=== PATIENT | male | born 1965 | race Caucasian/White ===

== ENCOUNTER 2021-01-25 10:15 | Emergency (ER) | payer BC ==
[2021-01-25] MEDS ORDERED: Take Home: Ketorolac 10 MG Tab, 4 Tab Pack PO ONE (10:28)
--- NOTE | 2021-01-25 10:31 | EDM.PDOC ---
ED HPI GENERAL MEDICAL PROBLEM - General Chief Complaint: General Stated Complaint: Knee Injury Time Seen by Provider: 01/25/21 10:25 Source of Information: Reports: Patient History Limitations: Reports: No Limitations - History of Present Illness INITIAL COMMENTS - FREE TEXT/NARRATIVE: Carter is a 55 year old male who presents to ER with complaints of left knee pain. Was stepping down out of his tree stand and felt a pop in his posterior left knee. Did not fall. Does not recall twisting it. Has had posterior knee pain since it occurred. Did have trouble sleeping last night due to discomfort. Has been icing it frequently since it occurred. Has pain "deep in the back" and pain with weight bearing. No buckling, does not give out on him. Has not noted any obvious swelling. Onset: Gradual Duration: Hour(s):, Constant Location: Reports: Lower Extremity, Left Quality: Reports: Ache Severity: Moderate Improves with: Reports: Rest Worsens with: Reports: Movement Associated Symptoms: Reports: No Other Symptoms Left Knee Pain Score (Numeric/FACES): 6 - Related Data Allergies Allergy/AdvReac Type Severity Reaction Status Date / Time doxycycline Allergy Hives Verified 01/25/21 10:22 Home Meds: Home Meds Ketorolac [Toradol] 10 mg PO Q6H PRN #16 tab 01/25/21 [Rx] Losartan/Hydrochlorothiazide [Losartan-HCTZ 100-25 MG] 1 each PO DAILY 01/25/21 [History] Metoprolol Succinate [Toprol XL 100mg] 100 mg PO DAILY 01/25/21 [History] Simvastatin [Zocor] 20 mg PO BEDTIME 01/25/21 [History] Temazepam [Restoril] 15 mg PO BEDTIME PRN 01/25/21 [History] Venlafaxine HCl [Venlafaxine ER] 75 mg PO DAILY 01/25/21 [History] busPIRone [Buspar] 15 mg PO DAILY 01/25/21 [History] metFORMIN [Glucophage XR] 500 mg PO BIDMEALS 01/25/21 [History] Past Medical History Cardiovascular History: Reports: High Cholesterol, Hypertension Psychiatric History: Reports: Anxiety, Depression Endocrine/Metabolic History: Reports: Diabetes, Type II Social & Family History - Tobacco Use Tobacco Use Status *Q: Never Tobacco User ED ROS GENERAL - Review of Systems Review Of Systems: Comprehensive ROS is negative, except as noted in HPI. ED EXAM, GENERAL - Physical Exam Exam: See Below Exam Limited By: No Limitations General Appearance: Alert, WD/WN, No Apparent Distress Extremities: Normal Inspection, Normal Range of Motion, Other (Pain noted with palpation to posterior knee, more laterally. No obvious swelling. No varus or valgus laxity. Good range of motion). No: Joint Swelling Neurological: Alert, Oriented Skin Exam: Warm, Dry Course - Orders/Labs/Meds Orders: Active Orders 24 hr Category Date Time Status Knee 3V Lt [CR] Stat Exams 01/25/21 10:11 Ordered Meds: Medications Discontinued Medications Generic Name Dose Route Start Last Admin Trade Name Freq PRN Reason Stop Dose Admin Ketorolac Tromethamine 1 packet 01/25/21 10:28 Take Home: Ketorolac 10 Mg Tab, 4 Tab Pack PO 01/25/21 10:29 ONETIME ONE - Re-Assessments/Exams Free Text/Narrative Re-Assessment/Exam: 01/25/21 10:39 Xrays are negative. Instructions discussed with patient. Departure - Departure Time of Disposition: 10:39 Disposition: Home, Self-Care 01 Clinical Impression: Sprain of left knee - Discharge Information *PRESCRIPTION DRUG MONITORING PROGRAM REVIEWED*: No *COPY OF PRESCRIPTION DRUG MONITORING REPORT IN PATIENT [place]: No Prescriptions: Ketorolac [Toradol] 10 mg PO Q6H PRN #16 tab PRN Reason: Pain Instructions: Knee Sprain, Adult, [id number] Forms: ED Department Discharge Additional Instructions: 1. Rest 2. Elevate knee today 3. Ice frequently today, may alternate with heat tomorrow 4. Toradol 10 mg every 6 hours for pain and swelling 5. Follow up in 5-7 days if pain persists, may need MRI of knee 6. Consider seeing physical therapy for treatment 7. Call with any questions or concerns - My Orders Last 24 Hours: My Active Orders 01/25/21 10:11 Knee 3V Lt [CR] Stat - Assessment/Plan Last 24 Hours: My Active Orders 01/25/21 10:11 Knee 3V Lt [CR] Stat
== END 2021-01-25 10:50 | disposition home or self-care (01) ==
LOC: CC.ED 10:15
DX: S83.92XA Sprain of unspecified site of left knee, initial encounter (principal); E78.00 Pure hypercholesterolemia, unspecified; I10 Essential (primary) hypertension; E11.9 Type 2 diabetes mellitus without complications; Z88.1 Allergy status to other antibiotic agents; Z79.84 Long term (current) use of oral hypoglycemic drugs; Z79.899 Other long term (current) drug therapy; X58.XXXA Exposure to other specified factors, initial encounter
CPT/HCPCS: 73562-LT; 99283-25; A9270-GY

== ENCOUNTER 2022-01-03 18:19 | Emergency (ER) | payer BC ==
[2022-01-03 18:45] VITALS: BP 116/66; PULSE 133
[2022-01-03] MEDS: Lidocaine 1% 5 ML VIAL INJECT ONE (19:08)
[2022-01-03] MEDS: cefTRIAXone 1 GM Vial IM ONE (19:08)
== END 2022-01-03 19:24 | disposition home or self-care (01) ==
LOC: CC.ED 18:19
DX: N39.0 Urinary tract infection, site not specified (principal); I10 Essential (primary) hypertension; E11.9 Type 2 diabetes mellitus without complications; Z88.1 Allergy status to other antibiotic agents; Z79.899 Other long term (current) drug therapy; Z79.84 Long term (current) use of oral hypoglycemic drugs
CPT/HCPCS: 81001; 87086; 87088; 87186; 96372; 99283; J0696

== ENCOUNTER 2024-12-20 15:26 | Emergency (ER) | payer BC ==
[2024-12-20] MEDS: Diphtheria,Pertussis(Acell),Tetanus Vaccine 0.5 ML Syringe IM ONE (16:27)
[2024-12-20] MEDS: Take Home: Cephalexin 500 MG Cap, 6 Cap Pack PO ONE (17:09)
[2024-12-20] MEDS: Take Home: Acetaminophen/HYDROcodone 325-5 MG, 2 Tab Pack PO ONE (17:09)
[2024-12-20] MEDS: Bacitracin Oint 1 GM U/D Packet TOP ONE (17:11)
== END 2024-12-20 17:50 | disposition home or self-care (01) ==
LOC: CC.ED 15:26
DX: S61.112A Laceration without foreign body of left thumb with damage to nail, initial encounter (principal); I10 Essential (primary) hypertension; E78.00 Pure hypercholesterolemia, unspecified; E11.9 Type 2 diabetes mellitus without complications; Z88.8 Allergy status to other drugs, medicaments and biological substances; Z23 Encounter for immunization; W27.0XXA Contact with workbench tool, initial encounter; Y93.89 Activity, other specified
CPT/HCPCS: 12002; 73140-FA; 90471; 90715; 96374; 96375; 99283; 99283-25; A9270-GY; J0690; J1171; J2003